=== PATIENT | female | born 1960 | race Caucasian/White ===

== ENCOUNTER 2017-06-13 04:37 | Emergency (ER) | payer OTHER ==
[2017-06-13 04:57] VITALS: BP 112/81; PULSE 74; TEMP 98; BMI 27.4
--- NOTE | 2017-06-13 05:49 | PDOC ---
History of Present Illness - General Chief Complaint: Respiratory Stated Complaint: ANXIETY Time Seen by Provider: 06/13/17 04:54 History Source: Patient Exam Limitations: No Limitations - History of Present Illness Initial Comments: This is a 57 YOF with h/o frequent allergic reactions (seasonal, chemicals, and medications) who presents BIBA for sensation that her throat has been closing off since 2 am this morning (approximately 3 hours ago). She notes difficulty breathing as a result of this symptom. The patient believes that she was exposed to some cleaning chemical at a home she was visiting yesterday. She initially had itchy nose only, but this progressed to the throat closing sensation, upper chest pain, and difficulty breathing. She took Zyrtec with partial relief of her shortness of breath and chest pain, but still feels pressure in her throat. She denies having any recent cough, rash, facial swelling, headache, lightheadedness, dizziness, nausea, vomiting, diarrhea, or other symptoms. The patient states that her stress/anxiety level has been no higher lately than normal for her. Past History - Past Medical History Allergies/Adverse Reactions: Allergies Allergy/AdvReac Type Severity Reaction Status Date / Time aspirin Allergy Severe Difficulty Verified 06/13/17 04:54 Breathing Sulfa (Sulfonamide Allergy Severe Itching Verified 06/13/17 04:54 Antibiotics) Muscle Relaxants Allergy Severe Difficulty Uncoded 06/13/17 04:54 Breathing Home Medications: Ambulatory Orders Epinephrine (Epi-Pen 0.3MG) [Epipen 0.3MG -] 0.3 mg IM ASDIR #2 pens 06/13/17 COPD: No Other medical history: Pt denies - Suicide/Smoking/Psychosocial Hx Smoking History: Never smoked Have you smoked in the past 12 months: No Information on smoking cessation initiated: No Hx Alcohol Use: No Drug/Substance Use Hx: No Substance Use Type: None Review of Systems - Review of Systems Able to Perform ROS?: Yes Constitutional: No: Chills, Fever, Unexplained wgt Loss HEENTM: Yes: Throat Swelling. No: Nose Congestion, Throat Pain Respiratory: Yes: Shortness of Breath. No: Cough Cardiac (ROS): Yes: Chest Pain (resolved). No: Palpitations ABD/GI: No: Constipated, Diarrhea, Nausea, Vomiting : No: Burning, Dysuria Musculoskeletal: No: Back Pain, Neck Pain Integumentary: No: Bruising, Rash Neurological: No: Headache, Numbness, Tingling, Weakness, Dizziness Endocrine: No: Unexplained Weight Gain, Unexplained Weight Loss *Physical Exam - Vital Signs Last Vital Signs Temp Pulse Resp BP Pulse Ox 98.0 F 74 18 112/81 97 06/13/17 04:55 06/13/17 04:55 06/13/17 04:55 06/13/17 04:55 06/13/17 04:55 - Physical Exam General Appearance: Yes: Nourished, Appropriately Dressed, Other (well- appearing adult female, Guamanian-speaking, answering questions appropriately). No: Apparent Distress HEENT: positive: EOMI, SUSAN, Normal Voice, Pharynx Normal, Hearing Grossly Normal. negative: Scleral Icterus (R), Scleral Icterus (L), Muffled/Hoarse voice, Pharyngeal Erythema, Tonsillar Exudate, Tonsillar Erythema, Nasal Congestion, Rhinorrhea, Excessive drooling Neck: positive: Trachea midline, Supple. negative: Tender, Rigid Respiratory/Chest: positive: Lungs Clear, Normal Breath Sounds. negative: Chest Tender, Respiratory Distress, Crackles, Rhonchi, Stridor, Wheezing Cardiovascular: positive: Regular Rhythm, Regular Rate. negative: Murmur Gastrointestinal/Abdominal: positive: Normal Bowel Sounds, Soft. negative: Tender, Organomegaly, Pulsatile Mass, Guarding Musculoskeletal: positive: Normal Inspection. negative: Decreased Range of Motion, Vertebral Tenderness Extremity: positive: Normal Capillary Refill, Normal Inspection, Normal Range of Motion. negative: Tender, Cyanosis Integumentary: positive: Normal Color, Dry, Warm. negative: Erythema, Rash, Bruising Neurologic: positive: car whacker II-XII NML intact (grossly), Fully Oriented, Alert, Normal Mood/Affect, Normal Response, Motor Strength 5/5 ED Treatment Course - RADIOLOGY Radiology Studies Ordered: Category Date Time Status CHEST PA & LAT [RAD] Stat Radiology 06/13/17 05:10 Ordered NECK SOFT TISSUE [RAD] Stat Radiology 06/13/17 05:10 Ordered Medical Decision Making - Medical Decision Making This is a 57 YOF with h/o recurrent allergic reactions who presents c/o throat swelling, difficulty breathing, and upper CP (resolved). Believes that she was exposed to a chemical at a home she was visiting. On exam her VS are wnl, she is in no distress, no stridor, no other breath sound abnormalities, normal oropharyngeal exam. DDX IBNLT allergic rxn, GERD, unlikely anaphylaxis, unlikely pharyngitis, unlikely tonsillitis, unlikely epiglottitis, unlikely mass, etc. Ordered is CXR, XR neck soft tissue, EKG. No abnormalities on workup, on re-exam she has no e/o anaphylaxis or any allergic rxn. Patient is appropriate for discharge home with close OP followup. She is E-prescribed an EpiPen. Return precautions are discussed. *DC/Admit/Observation/Transfer Diagnosis at time of Disposition: Allergic reaction Qualifiers: Encounter type: initial encounter Qualified Code(s): T78.40XA - Allergy, unspecified, initial encounter - Discharge Dispostion Disposition: HOME Condition at time of disposition: Stable Admit: No - Prescriptions Prescriptions: Epinephrine (Epi-Pen 0.3MG) [Epipen 0.3MG -] 0.3 mg IM ASDIR #2 pens - Referrals Referrals: STAFF,NOT ON [Primary Care Provider] - - Patient Instructions Additional Instructions: Nelson visto en la nancy de emergencias por presion de la garganta, dificultad respirar, y dolor del pecho. Hicimos anaya placa del pecho y del deisi, y todo parece normal en la garganta. Por favor haz anaya erlinda con leach doctor primario, o puede regresar a la nancy de emergencias si tiene sintomas nuevas o que empeoras carley nuevo episodio de dolor del pecho, dificultad respirar, inchazon de los labios, o otras sintomas que no puede controlar con el EpiPen. Estamos mandando anaya receta electronico a leach farmacia para el EpiPen. - Post Discharge Activity
--- NOTE | 2017-06-13 06:40 | PDOC ---
Attending Attestation - Resident Resident Name: Fatmata Candelario - ED Attending Attestation I have performed the following: I have examined & evaluated the patient, The case was reviewed & discussed with the resident, I agree w/resident's findings & plan - HPI HPI: 06/13/17 06:38 Pt feels that she is having an allergic reaction. Not sure to what, but she has a hx of allergies and she is anxious. Pt appears well in the ER. s - Physicial Exam PE: 06/13/17 06:39 Agree with resident exam - Medical Decision Making 06/13/17 06:40 Soft tissue neck XR normal; CXR normal. Exam and vitals normal. Pt will be sent home with EPI pen. She will be asked to follow with ENT and allergy. 06/13/17 06:43 EKG is normal
--- NOTE | 2017-06-14 01:26 | EKG ---
Test Reason : Blood Pressure : / mmHG Vent. Rate : 066 BPM Atrial Rate : 066 BPM P-R Int : 166 ms QRS Dur : 078 ms QT Int : 384 ms P-R-T Axes : 057 010 025 degrees QTc Int : 402 ms NORMAL SINUS RHYTHM NORMAL ECG NO PREVIOUS ECGS AVAILABLE Confirmed by DEBI JAY MD ([id number]) on 06/14/2017 1:26:10 AM Referred By: Confirmed By:DEBI JAY MD
== END 2017-06-13 06:45 | disposition home or self-care (01) ==
LOC: EDBD 04:37 → JER 04:37
DX: T78.49XA Other allergy, initial encounter (principal); X58.XXXA Exposure to other specified factors, initial encounter
CPT/HCPCS: 70360-TC; 71020-TC; 93005; 93010; 99282-25